=== PATIENT | male | born 1945 | race Caucasian/White ===

== ENCOUNTER → 2017-03-02 | Outpatient (CLI) | payer MEDICARE, OTHER ==
[2014-12-22 10:05] VITALS: BP 118/62
[~2017-03-02] MED LIST: AMITRIPTYLINE25 MG PO; AMLODIPINE10 MG PO; ASPIRIN 32325 MG/TA1 PO; ATORVASTATIN CA80 MG PO; COMBIGAN 0.2%-0.5 ML OP; DEEP SEA 45 ML45 ML NS; DOCUSATE CALCI100 MG PO; FAMOTIDINE20 MG PO; GLUCOSAMINE & C1 TA1 PO; KETOROLAC TROME10 MG PO; METOPROLOL SUCC50 M1 PO; MINOXIDIL 10 PO; MUCINEX 60600 MG/TA1 PO; NITROQUICK0.4 MG SL; NORVASC 10MG10 MG PO; OPTIVAR 6 ML 6 M6 ML NAS; PERCOCET 325 MG1 TA2 PO; PLAVIX 75MG TAB75 MG PO; PRILOSEC 20MG20 MG PO; PROTONIX40 MG PO; RITALIN 20M20 MG/TAB PO; RITALIN LA20 MG PO; SPIRONOLACTONE25 MG PO; TIMOPTIC OCUDOSE OP; TOPROL XL50 MG PO; TRAVATAN 2.5 M2.5 M1 OU; ZOCOR20 MG PO
== END ==
LOC: RAD 10:44
DX: E23.0 Hypopituitarism (principal); I25.10 Atherosclerotic heart disease of native coronary artery without angina pectoris; Z12.11 Encounter for screening for malignant neoplasm of colon

== ENCOUNTER → 2017-04-27 | Outpatient (CLI) | payer MEDICARE, OTHER ==
[2014-12-22 10:05] VITALS: BP 118/62
== END ==
LOC: LAB 11:13
DX: J98.4 Other disorders of lung (principal)

== ENCOUNTER → 2017-05-04 | Outpatient (CLI) | payer MEDICARE, OTHER ==
[2014-12-22 10:05] VITALS: BP 118/62
== END ==
LOC: RAD 08:20
DX: J98.4 Other disorders of lung (principal)

== ENCOUNTER → 2018-03-08 | Outpatient (CLI) | payer MEDICARE, OTHER ==
[2018-03-04 09:49] VITALS: BP 136/78
[~2018-03-08] MED LIST changes: +TOPROL XL 50MG50 MG PO; -TOPROL XL50 MG PO
== END ==
LOC: LAB 11:36
DX: Z12.11 Encounter for screening for malignant neoplasm of colon (principal)

== ENCOUNTER → 2018-03-12 | Outpatient (CLI) | payer MEDICARE, OTHER ==
[2018-03-04 09:49] VITALS: BP 136/78
== END ==
LOC: LAB 08:26
DX: Z01.89 Encounter for other specified special examinations (principal)

== ENCOUNTER → 2018-03-18 | Outpatient (CLI) | payer MEDICARE, OTHER ==
[2018-03-04 09:49] VITALS: BP 136/78
[2018-03-18 11:41] LABS: BASO # 0.1 (0.02-0.10); EOS # 0.4 (0.04-0.40); EOS % 2.3 % (0.0-4.0); HEMATOCRIT 47.6 % (42.0-52.0); HEMOGLOBIN 16.5 g/dL (13.5-18.0); MEAN CELL VOLUME 91 fl (78-100); MEAN CORPUSCULAR HEMOGLOBIN 32 pg (27-31); MEAN CORPUSCULAR HGB CONC 35 g/dL (33-37); MEAN PLATELET VOLUME 10.3 fl (7.4-10.4); NEU # 8.1 (1.40-6.50); PLATELET COUNT 221 K/mm3 (130-400); RED BLOOD COUNT 5.23 M/mm3 (4.20-5.60); RED CELL DISTRIBUTION WIDTH 12.2 % (11.5-14.5)
[2018-03-18 11:52] LABS: ALBUMIN 4.1 g/dL (3.5-5.0); BUN/CREATININE RATIO 13.3 (6.0-26.0); CALCIUM 8.9 mg/dL (8.4-10.2); POTASSIUM 4.6 mmol/L (3.6-5.0); TOTAL BILIRUBIN 0.7 mg/dL (0.2-1.3); TOTAL PROTEIN 7.1 g/dL (6.3-8.2)
[2018-03-18 12:31] LABS: URINE APPEARANCE CLEAR; URINE BILIRUBIN NEGATIVE (NEGATIVE); URINE BLOOD NEGATIVE (NEGATIVE); URINE COLOR YELLOW; URINE GLUCOSE NEGATIVE (NEGATIVE); URINE KETONE NEGATIVE (NEGATIVE); URINE LEUKOCYTE ESTERASE NEGATIVE (NEGATIVE); URINE NITRATE NEGATIVE (NEGATIVE); URINE PROTEIN(semi-quant) NEGATIVE (NEGATIVE); URINE UROBILINOGEN NORMAL (NORMAL); URINE WBC 0-1 /hpf (0-3)
[2018-03-18 12:38] LABS: LYMPH# 5.4 (1.50-4.00)
== END ==
LOC: LAB 11:09
PROVIDERS: Internal Medicine
DX: I25.10 Atherosclerotic heart disease of native coronary artery without angina pectoris (principal); I10 Essential (primary) hypertension; J98.4 Other disorders of lung

== ENCOUNTER 2018-05-13 20:44 | Emergency (ER) | payer MEDICARE, OTHER ==
[~2018-05-13] VITALS: Ht 177.8 cm; Wt 90.9 kg
[2018-05-13] MEDS ORDERED: PERCOCET 325 MG1 TA2 PO (22:50)
[2018-05-13 23:20] VITALS: BP 125/69
== END 2018-05-13 23:20 | disposition home or self-care (01) ==
LOC: ED 20:44
DX: S93.401A Sprain of unspecified ligament of right ankle, initial encounter (principal); S90.01XA Contusion of right ankle, initial encounter; W23.0XXA Caught, crushed, jammed, or pinched between moving objects, initial encounter; Y92.009 Unspecified place in unspecified non-institutional (private) residence as the place of occurrence of the external cause; I10 Essential (primary) hypertension; I25.2 Old myocardial infarction; Z95.1 Presence of aortocoronary bypass graft
CPT/HCPCS: J2270; J3010

== ENCOUNTER → 2018-05-22 | Outpatient (CLI) | payer MEDICARE, OTHER ==
[2018-05-13 23:20] VITALS: BP 125/69
== END ==
LOC: RAD 08:20
DX: R22.41 Localized swelling, mass and lump, right lower limb (principal)

== ENCOUNTER → 2019-04-01 | Outpatient (CLI) | payer MEDICARE, OTHER ==
[2019-04-01 10:32] LABS: BASO # 0.1 (0.02-0.10); EOS # 0.5 (0.04-0.40); HEMOGLOBIN 15.4 g/dL (13.5-18.0); LYMPH# 3.5 (1.50-4.00); MEAN CELL VOLUME 92 fl (78-100); MEAN CORPUSCULAR HEMOGLOBIN 31 pg (27-31); MEAN CORPUSCULAR HGB CONC 34 g/dL (33-37); MEAN PLATELET VOLUME 9.5 fl (7.4-10.4); MONO # 0.7 (0.20-0.80); NEU # 4.3 (1.40-6.50); PLATELET COUNT 199 K/mm3 (130-400); RED BLOOD COUNT 4.99 M/mm3 (4.20-5.60); RED CELL DISTRIBUTION WIDTH 12.1 % (11.5-14.5); WHITE BLOOD COUNT 9.1 K/mm3 (4.8-10.8)
[2019-04-01 10:39] LABS: EOS % 5.2 % (0.0-4.0)
[2019-04-01 11:20] LABS: ALBUMIN 4.2 g/dL (3.4-4.8); POTASSIUM 4.5 mmol/L (3.5-5.1); TOTAL BILIRUBIN 0.6 mg/dL (0.2-1.2); TOTAL PROTEIN 6.3 g/dL (6.2-8.1)
[2019-04-01 12:00] LABS: ERYTHROCYTE SEDIMENTATION RATE 1 mm/hr (0-20)
[2019-04-01 22:21] LABS: TESTOSTERONE 616 ng/dL (221-716)
== END ==
LOC: LAB 10:20
PROVIDERS: Internal Medicine
DX: Z12.5 Encounter for screening for malignant neoplasm of prostate (principal); Z12.11 Encounter for screening for malignant neoplasm of colon; I25.10 Atherosclerotic heart disease of native coronary artery without angina pectoris; I10 Essential (primary) hypertension; E23.0 Hypopituitarism; R20.2 Paresthesia of skin

== ENCOUNTER → 2019-04-11 | Outpatient (CLI) | payer MEDICARE, OTHER | LOC: LAB 13:52 | DX: Z12.11 Encounter for screening for malignant neoplasm of colon (principal); I25.10 Atherosclerotic heart disease of native coronary artery without angina pectoris ==

== ENCOUNTER → 2019-05-02 | Outpatient (CLI) | payer MEDICARE, OTHER ==
[2019-05-02 16:19] LABS: POTASSIUM 4.1 mmol/L (3.5-5.1); SODIUM 134 mmol/L (136-145)
[2019-05-02 16:20] LABS: CALCIUM 9.2 mg/dL (8.3-10.5); HEMATOCRIT 45.8 % (42.0-52.0); HEMOGLOBIN 15.5 g/dL (13.5-18.0); MEAN PLATELET VOLUME 9.6 fl (7.4-10.4); RED BLOOD COUNT 4.99 M/mm3 (4.20-5.60); RED CELL DISTRIBUTION WIDTH 11.9 % (11.5-14.5); WHITE BLOOD COUNT 9.2 K/mm3 (4.8-10.8)
[2019-05-02 16:21] LABS: GLUCOSE 88 mg/dL (75-110)
[2019-05-02 16:22] LABS: CARBON DIOXIDE 25 mmol/L (23-31)
[2019-05-02 16:45] LABS: TROPONIN-I < 0.03 ng/mL (<0.030)
== END ==
LOC: LAB 15:53
PROVIDERS: Psychiatry & Neurology Psychiatry
DX: I10 Essential (primary) hypertension (principal); I95.9 Hypotension, unspecified

== ENCOUNTER → 2019-08-13 | Outpatient (CLI) | payer MEDICARE, OTHER | LOC: LAB 10:14 | DX: E29.1 Testicular hypofunction (principal) ==

== ENCOUNTER → 2019-12-04 | Outpatient (CLI) | payer MEDICARE, OTHER | LOC: RAD 09:25 | DX: M50.30 Other cervical disc degeneration, unspecified cervical region (principal); M47.814 Spondylosis without myelopathy or radiculopathy, thoracic region; M41.84 Other forms of scoliosis, thoracic region ==

== ENCOUNTER → 2019-12-19 | Outpatient (CLI) | payer MEDICARE, OTHER | LOC: RAD 08:52 | DX: D17.79 Benign lipomatous neoplasm of other sites (principal) ==

== ENCOUNTER 2020-01-22 14:00 | Outpatient (RCR) | payer MEDICARE, OTHER | END 2020-03-08 | disposition still patient (30) | LOC: PT | DX: M54.2 Cervicalgia (principal); M54.6 Pain in thoracic spine ==

== ENCOUNTER → 2020-05-03 | Outpatient (CLI) | payer MEDICARE, OTHER ==
[2020-05-03 08:35] LABS: URINE WBC 0 /hpf (0-3)
[2020-05-03 08:43] LABS: BASO # 0.1 (0.02-0.10); EOS # 0.5 (0.04-0.40); EOS % 4.5 % (0.0-4.0); HEMATOCRIT 46.8 % (42.0-52.0); HEMOGLOBIN 15.8 g/dL (13.5-18.0); LYMPH# 4.4 (1.50-4.00); MEAN CELL VOLUME 94 fl (78-100); MEAN CORPUSCULAR HEMOGLOBIN 32 pg (27-31); MEAN CORPUSCULAR HGB CONC 34 g/dL (33-37); MEAN PLATELET VOLUME 9.6 fl (7.4-10.4); MONO # 0.9 (0.20-0.80); NEU # 4.1 (1.40-6.50); PLATELET COUNT 170 K/mm3 (130-400); RED BLOOD COUNT 4.99 M/mm3 (4.20-5.60); RED CELL DISTRIBUTION WIDTH 11.8 % (11.5-14.5)
[2020-05-03 08:50] LABS: POTASSIUM 4.2 mmol/L (3.5-5.1)
[2020-05-03 08:51] LABS: CALCIUM 8.9 mg/dL (8.3-10.5)
[2020-05-03 08:52] LABS: TOTAL PROTEIN 6.3 g/dL (6.2-8.1)
[2020-05-03 08:54] LABS: TOTAL BILIRUBIN 0.5 mg/dL (0.2-1.2)
[2020-05-03 08:59] LABS: MAGNESIUM 1.92 mg/dL (1.60-2.60)
--- NOTE | 2020-05-03 09:11 | NUR ---
PATIENT DENIES SHORTNESS OF BREATH OR CHEST PAIN. PATIENT'S EKG IS ABNORMAL; GAVE COPY TO DR. SHEARER TO REVIEW AND PATIENT LEFT DEPARTMENT WITHOUT INCIDENT.
[2020-05-03 09:15] LABS: URINE APPEARANCE CLEAR; URINE BILIRUBIN NEGATIVE (NEGATIVE); URINE BLOOD NEGATIVE (NEGATIVE); URINE COLOR YELLOW; URINE GLUCOSE NEGATIVE (NEGATIVE); URINE KETONE NEGATIVE (NEGATIVE); URINE LEUKOCYTE ESTERASE NEGATIVE (NEGATIVE); URINE NITRATE NEGATIVE (NEGATIVE); URINE PROTEIN(semi-quant) TRACE mg/dL (NEGATIVE); URINE UROBILINOGEN NORMAL (NORMAL)
[2020-05-03 09:49] LABS: ERYTHROCYTE SEDIMENTATION RATE 0 mm/hr (0-20)
[2020-05-03 17:06] LABS: TESTOSTERONE 461 ng/dL (221-716)
== END ==
LOC: AMSURD 08:25
PROVIDERS: Internal Medicine
DX: I25.10 Atherosclerotic heart disease of native coronary artery without angina pectoris (principal)

== ENCOUNTER → 2020-07-09 | Outpatient (CLI) | payer MEDICARE, OTHER | LOC: AMSURD 09:47 | DX: I48.0 Paroxysmal atrial fibrillation (principal) ==

== ENCOUNTER → 2020-07-12 | Outpatient (CLI) | payer MEDICARE, OTHER | LOC: RAD 11:59 | DX: M19.011 Primary osteoarthritis, right shoulder (principal) ==

== ENCOUNTER → 2020-07-15 | Outpatient (CLI) | payer MEDICARE, OTHER | LOC: RAD 10:59 | DX: M19.011 Primary osteoarthritis, right shoulder (principal); S43.431A Superior glenoid labrum lesion of right shoulder, initial encounter; M75.81 Other shoulder lesions, right shoulder; M75.51 Bursitis of right shoulder ==

== ENCOUNTER 2020-08-10 10:03 | Outpatient (RCR) | payer MEDICARE, OTHER | END 2020-08-10 10:30 | disposition still patient (30) | LOC: PT 10:03 | DX: M25.511 Pain in right shoulder (principal) ==

== ENCOUNTER 2020-09-03 10:30 | Outpatient (RCR) | payer MEDICARE, OTHER | END 2020-09-03 11:00 | disposition still patient (30) | LOC: PT 10:30 | DX: M25.511 Pain in right shoulder (principal) ==

== ENCOUNTER → 2020-11-01 | Outpatient (CLI) | payer MEDICARE, OTHER ==
[2020-11-01 10:13] LABS: BASO # 0.1 (0.02-0.10); EOS # 0.4 (0.04-0.40); EOS % 4.4 % (0.0-4.0); HEMATOCRIT 45.4 % (42.0-52.0); HEMOGLOBIN 15.5 g/dL (13.5-18.0); LYMPH# 3.7 (1.50-4.00); MEAN CELL VOLUME 92 fl (78-100); MEAN CORPUSCULAR HEMOGLOBIN 32 pg (27-31); MEAN CORPUSCULAR HGB CONC 34 g/dL (33-37); MEAN PLATELET VOLUME 9.4 fl (7.4-10.4); MONO # 0.8 (0.20-0.80); NEU # 3.9 (1.40-6.50); PLATELET COUNT 212 K/mm3 (130-400); RED BLOOD COUNT 4.92 M/mm3 (4.20-5.60); RED CELL DISTRIBUTION WIDTH 11.7 % (11.5-14.5); WHITE BLOOD COUNT 8.9 K/mm3 (4.8-10.8)
[2020-11-01 10:27] LABS: TOTAL PROTEIN 6.3 g/dL (6.2-8.1)
[2020-11-01 10:29] LABS: TOTAL BILIRUBIN 0.6 mg/dL (0.2-1.2)
[2020-11-01 22:46] LABS: TESTOSTERONE 558 ng/dL (221-716)
== END ==
LOC: LAB 09:57
PROVIDERS: Internal Medicine
DX: I10 Essential (primary) hypertension (principal); K90.9 Intestinal malabsorption, unspecified; E23.0 Hypopituitarism; E78.2 Mixed hyperlipidemia

== ENCOUNTER → 2021-03-14 | Outpatient (CLI) | payer MEDICARE, OTHER ==
[~2021-03-14] MED LIST changes: +DESYREL50 MG PO; +MELATONIN5 M3 PO; +MYRBETRIQ50 MG PO; +PROVIGIL200 M1 PO; +TRAVATAN Z 5 ML5 ML OU; +TRUSOPT OCUMETE10 ML OU
[2021-03-14 10:32] LABS: URINE APPEARANCE CLEAR; URINE BILIRUBIN NEGATIVE (NEGATIVE); URINE BLOOD NEGATIVE (NEGATIVE); URINE COLOR YELLOW; URINE GLUCOSE NEGATIVE (NEGATIVE); URINE KETONE NEGATIVE (NEGATIVE); URINE NITRATE NEGATIVE (NEGATIVE); URINE PROTEIN(semi-quant) NEGATIVE (NEGATIVE); URINE UROBILINOGEN NORMAL (NORMAL)
[2021-03-14 10:33] LABS: URINE LEUKOCYTE ESTERASE NEGATIVE (NEGATIVE)
== END ==
LOC: LAB 09:53
PROVIDERS: Internal Medicine
DX: R31.0 Gross hematuria (principal)

== ENCOUNTER → 2021-03-22 | Outpatient (CLI) | payer MEDICARE, OTHER ==
[2021-03-22 14:36] LABS: URINE WBC 0 /hpf (0-3)
[2021-03-22 15:19] LABS: URINE APPEARANCE CLEAR; URINE BILIRUBIN NEGATIVE (NEGATIVE); URINE BLOOD TRACE (NEGATIVE); URINE COLOR YELLOW; URINE GLUCOSE NEGATIVE (NEGATIVE); URINE KETONE NEGATIVE (NEGATIVE); URINE LEUKOCYTE ESTERASE NEGATIVE (NEGATIVE); URINE NITRATE NEGATIVE (NEGATIVE); URINE PROTEIN(semi-quant) TRACE mg/dL (NEGATIVE); URINE UROBILINOGEN NORMAL (NORMAL)
== END ==
LOC: LAB 14:23
PROVIDERS: Internal Medicine
DX: R31.0 Gross hematuria (principal)

== ENCOUNTER → 2021-03-23 | Outpatient (CLI) | payer MEDICARE, OTHER | LOC: RAD 07:30 | DX: R31.0 Gross hematuria (principal) ==

== ENCOUNTER 2021-04-26 09:56 | Outpatient (RCR) | payer MEDICARE, OTHER ==
[~2021-04-26 09:56] MED LIST changes: -DESYREL50 MG PO; -MELATONIN5 M3 PO; -MYRBETRIQ50 MG PO; -PROVIGIL200 M1 PO; -TRAVATAN Z 5 ML5 ML OU; -TRUSOPT OCUMETE10 ML OU
== END 2021-07-25 | disposition still patient (30) ==
LOC: PT
DX: R29.898 Other symptoms and signs involving the musculoskeletal system (principal)

== ENCOUNTER → 2021-05-12 | Outpatient (CLI) | payer MEDICARE, OTHER ==
[~2021-05-12] MED LIST changes: +DESYREL50 MG PO; +MELATONIN5 M3 PO; +MYRBETRIQ50 MG PO; +PROVIGIL200 M1 PO; +TRAVATAN Z 5 ML5 ML OU; +TRUSOPT OCUMETE10 ML OU
[2021-05-12 12:24] LABS: BASO # 0.08 (0.02-0.10); EOS # 0.53 (0.04-0.40); EOS % 5.7 % (0.0-4.0); HEMATOCRIT 46.9 % (42.0-52.0); HEMOGLOBIN 16.2 g/dL (13.5-18.0); LYMPH# 4.23 (1.50-4.00); MEAN CELL VOLUME 91 fl (78-100); MEAN CORPUSCULAR HEMOGLOBIN 32 pg (27-31); MEAN CORPUSCULAR HGB CONC 35 g/dL (33-37); MEAN PLATELET VOLUME 9.2 fl (7.4-10.4); MONO # 0.67 (0.20-0.80); NEU # 3.75 (1.40-6.50); PLATELET COUNT 201 K/mm3 (130-400); RED BLOOD COUNT 5.13 M/mm3 (4.20-5.60); RED CELL DISTRIBUTION WIDTH 11.2 % (11.5-14.5); WHITE BLOOD COUNT 9.3 K/mm3 (4.8-10.8)
[2021-05-12 12:28] LABS: ALBUMIN 4.2 g/dL (3.4-4.8); POTASSIUM 4.3 mmol/L (3.5-5.1)
[2021-05-12 12:29] LABS: CALCIUM 9.1 mg/dL (8.3-10.5)
[2021-05-12 12:31] LABS: TOTAL PROTEIN 6.7 g/dL (6.2-8.1)
[2021-05-12 12:32] LABS: TOTAL BILIRUBIN 0.7 mg/dL (0.2-1.2)
[2021-05-12 12:38] LABS: MAGNESIUM 1.86 mg/dL (1.60-2.60)
[2021-05-12 13:46] LABS: ERYTHROCYTE SEDIMENTATION RATE 0 mm/hr (0-20)
[2021-05-12 22:17] LABS: TESTOSTERONE 652 ng/dL (221-716)
== END ==
LOC: LAB 05-10 15:14
PROVIDERS: Internal Medicine
DX: Z12.11 Encounter for screening for malignant neoplasm of colon (principal); Z12.5 Encounter for screening for malignant neoplasm of prostate; C91.90 Lymphoid leukemia, unspecified not having achieved remission; K90.9 Intestinal malabsorption, unspecified; I25.10 Atherosclerotic heart disease of native coronary artery without angina pectoris; E23.0 Hypopituitarism

== ENCOUNTER → 2021-05-19 | Outpatient (CLI) | payer MEDICARE, OTHER | LOC: LAB 11:05 | DX: Z12.11 Encounter for screening for malignant neoplasm of colon (principal) ==

== ENCOUNTER → 2021-06-06 | Day surgery (SDC) | payer MEDICARE, OTHER | END | disposition home or self-care (01) | LOC: MSO 07:42 | DX: Z12.11 Encounter for screening for malignant neoplasm of colon (principal); Z86.010 Personal history of colon polyps; G47.33 Obstructive sleep apnea (adult) (pediatric); I10 Essential (primary) hypertension; I25.10 Atherosclerotic heart disease of native coronary artery without angina pectoris; E78.2 Mixed hyperlipidemia; H40.9 Unspecified glaucoma; Z79.82 Long term (current) use of aspirin; Z95.1 Presence of aortocoronary bypass graft; Z79.899 Other long term (current) drug therapy | CPT/HCPCS: 00812; J2704; J7120 ==

== ENCOUNTER 2021-08-19 22:29 | Emergency (ER) | payer MEDICARE, OTHER ==
[~2021-08-19] VITALS: Ht 175.3 cm; Wt 79.5 kg
[~2021-08-19 22:29] MED LIST changes: -DESYREL50 MG PO; -MELATONIN5 M3 PO; -MYRBETRIQ50 MG PO; -PROVIGIL200 M1 PO; -TRAVATAN Z 5 ML5 ML OU; -TRUSOPT OCUMETE10 ML OU
[2021-08-19] MEDS ORDERED: PROVIGIL200 M1 PO (22:44)
[2021-08-19] MEDS ORDERED: MYRBETRIQ50 MG PO (22:44)
[2021-08-19] MEDS ORDERED: MELATONIN5 M3 PO (22:45)
[2021-08-19] MEDS ORDERED: DESYREL50 MG PO (22:45)
[2021-08-19] MEDS ORDERED: TRAVATAN Z 5 ML5 ML OU (22:46)
[2021-08-19] MEDS ORDERED: TRUSOPT OCUMETE10 ML OU (22:47)
[2021-08-19 23:26] LABS: BASO # 0.13 K/mm3 (0.02-0.10); EOS # 0.58 K/mm3 (0.04-0.40); EOS % 6.1 % (0.0-4.0); HEMOGLOBIN 15.5 g/dL (13.5-18.0); LYMPH# 4.09 K/mm3 (1.50-4.00); MEAN CELL VOLUME 91 fl (78-100); MEAN CORPUSCULAR HEMOGLOBIN 32 pg (27-31); MEAN CORPUSCULAR HGB CONC 35 g/dL (33-37); MEAN PLATELET VOLUME 9.3 fl (7.4-10.4); MONO # 0.84 K/mm3 (0.20-0.80); NEU # 3.76 K/mm3 (1.40-6.50); PLATELET COUNT 195 K/mm3 (130-400); RED BLOOD COUNT 4.86 M/mm3 (4.20-5.60); RED CELL DISTRIBUTION WIDTH 11.5 % (11.5-14.5); WHITE BLOOD COUNT 9.4 K/mm3 (4.8-10.8)
[2021-08-19 23:33] LABS: ALBUMIN 3.9 g/dL (3.4-4.8); POTASSIUM 4.1 mmol/L (3.5-5.1); SODIUM 132 mmol/L (136-145)
[2021-08-19 23:34] LABS: CALCIUM 9.2 mg/dL (8.3-10.5)
[2021-08-19 23:35] LABS: GLUCOSE 109 mg/dL (75-110)
[2021-08-19 23:36] LABS: TOTAL PROTEIN 6.2 g/dL (6.2-8.1)
[2021-08-19 23:37] LABS: CARBON DIOXIDE 20 mmol/L (23-31); TOTAL BILIRUBIN 0.4 mg/dL (0.2-1.2)
[2021-08-19 23:41] LABS: AST-SGOT 22 U/L (5-34)
[2021-08-19 23:42] LABS: ALT/SGPT 33 U/L (0-55)
[2021-08-20] LABS: PARTIAL THROMBOPLASTIN TIME 26.9 SECONDS (21.0-32.0); PROTHROMBIN TIME 10.9 SECONDS (9.0-12.0)
[2021-08-20 00:04] LABS: TROPONIN-I < 0.03 ng/mL (<0.030)
[2021-08-20 00:38] VITALS: BP 146/73
== END 2021-08-20 00:38 | disposition home or self-care (01) ==
LOC: ED 22:29
PROVIDERS: Physician Assistant
DX: F41.9 Anxiety disorder, unspecified (principal); R94.31 Abnormal electrocardiogram [ECG] [EKG]; E78.5 Hyperlipidemia, unspecified; I25.10 Atherosclerotic heart disease of native coronary artery without angina pectoris; Z79.82 Long term (current) use of aspirin; Z79.899 Other long term (current) drug therapy

== ENCOUNTER → 2021-09-27 | Outpatient (CLI) | payer MEDICARE, OTHER ==
[~2021-09-27] MED LIST changes: +DESYREL50 MG PO; +MELATONIN5 M3 PO; +MYRBETRIQ50 MG PO; +PROVIGIL200 M1 PO; +TRAVATAN Z 5 ML5 ML OU; +TRUSOPT OCUMETE10 ML OU
== END ==
LOC: LAB 15:40
DX: Z20.822 Contact with and (suspected) exposure to COVID-19 (principal)

== ENCOUNTER → 2021-11-10 | Outpatient (CLI) | payer MEDICARE, OTHER ==
[2021-11-10 12:11] LABS: BASO # 0.12 K/mm3 (0.02-0.10); EOS # 0.39 K/mm3 (0.04-0.40); EOS % 4.5 % (0.0-4.0); HEMATOCRIT 46.8 % (42.0-52.0); LYMPH# 4.46 K/mm3 (1.50-4.00); MEAN CELL VOLUME 92 fl (78-100); MEAN CORPUSCULAR HEMOGLOBIN 31 pg (27-31); MEAN CORPUSCULAR HGB CONC 34 g/dL (33-37); MEAN PLATELET VOLUME 8.7 fl (7.4-10.4); MONO # 0.62 K/mm3 (0.20-0.80); NEU # 3.03 K/mm3 (1.40-6.50); PLATELET COUNT 210 K/mm3 (130-400); RED CELL DISTRIBUTION WIDTH 11.2 % (11.5-14.5); WHITE BLOOD COUNT 8.7 K/mm3 (4.8-10.8)
[2021-11-10 12:24] LABS: ALBUMIN 4.4 g/dL (3.4-4.8); POTASSIUM 4.5 mmol/L (3.5-5.1)
[2021-11-10 12:26] LABS: CALCIUM 9.6 mg/dL (8.3-10.5)
[2021-11-10 12:29] LABS: TOTAL BILIRUBIN 0.8 mg/dL (0.2-1.2)
== END ==
LOC: LAB 11:50
PROVIDERS: Internal Medicine
DX: I10 Essential (primary) hypertension (principal); K90.9 Intestinal malabsorption, unspecified; E78.2 Mixed hyperlipidemia

== ENCOUNTER → 2022-05-18 | Outpatient (CLI) | payer MEDICARE, OTHER ==
[2022-05-18 10:18] LABS: BASO # 0.07 K/mm3 (0.02-0.10); EOS # 0.44 K/mm3 (0.04-0.40); EOS % 6.6 % (0.0-4.0); HEMATOCRIT 44.5 % (42.0-52.0); HEMOGLOBIN 15.4 g/dL (13.5-18.0); LYMPH# 3.92 K/mm3 (1.50-4.00); MEAN CELL VOLUME 92 fl (78-100); MEAN CORPUSCULAR HEMOGLOBIN 32 pg (27-31); MEAN CORPUSCULAR HGB CONC 35 g/dL (33-37); MEAN PLATELET VOLUME 9.3 fl (7.4-10.4); MONO # 0.38 K/mm3 (0.20-0.80); NEU # 1.87 K/mm3 (1.40-6.50); PLATELET COUNT 165 K/mm3 (130-400); RED BLOOD COUNT 4.82 M/mm3 (4.20-5.60); RED CELL DISTRIBUTION WIDTH 11.4 % (11.5-14.5); WHITE BLOOD COUNT 6.7 K/mm3 (4.8-10.8)
[2022-05-18 10:24] LABS: ALBUMIN 4.3 g/dL (3.4-4.8); POTASSIUM 4.2 mmol/L (3.5-5.1)
[2022-05-18 10:25] LABS: CALCIUM 9.2 mg/dL (8.3-10.5)
[2022-05-18 10:27] LABS: TOTAL PROTEIN 6.9 g/dL (6.2-8.1)
[2022-05-18 10:29] LABS: TOTAL BILIRUBIN 0.7 mg/dL (0.2-1.2)
[2022-05-18 10:33] LABS: MAGNESIUM 1.97 mg/dL (1.60-2.60)
[2022-05-18 12:38] LABS: ERYTHROCYTE SEDIMENTATION RATE 0 mm/hr (0-20)
== END ==
LOC: LAB 09:56
PROVIDERS: Internal Medicine
DX: Z12.5 Encounter for screening for malignant neoplasm of prostate (principal); C83.00 Small cell B-cell lymphoma, unspecified site; I10 Essential (primary) hypertension; K90.9 Intestinal malabsorption, unspecified; M54.12 Radiculopathy, cervical region; I25.10 Atherosclerotic heart disease of native coronary artery without angina pectoris; E78.2 Mixed hyperlipidemia

== ENCOUNTER → 2022-08-09 | Outpatient (CLI) | payer MEDICARE, OTHER | LOC: LAB 08:51 | DX: E78.5 Hyperlipidemia, unspecified (principal) ==

== ENCOUNTER → 2022-10-19 | Outpatient (CLI) | payer MEDICARE, OTHER ==
[2022-10-19 11:28] LABS: HEMATOCRIT 38.6 % (42.0-52.0); HEMOGLOBIN 13.7 g/dL (13.5-18.0); MEAN CELL VOLUME 94 fl (78-100); MEAN CORPUSCULAR HEMOGLOBIN 33 pg (27-31); MEAN CORPUSCULAR HGB CONC 36 g/dL (33-37); MEAN PLATELET VOLUME 8.8 fl (7.4-10.4); PLATELET COUNT 169 K/mm3 (130-400); RED BLOOD COUNT 4.13 M/mm3 (4.20-5.60); RED CELL DISTRIBUTION WIDTH 11.7 % (11.5-14.5); WHITE BLOOD COUNT 5.2 K/mm3 (4.8-10.8)
[2022-10-19 11:37] LABS: ALBUMIN 4.3 g/dL (3.4-4.8); POTASSIUM 4.4 mmol/L (3.5-5.1)
[2022-10-19 11:38] LABS: CALCIUM 9.6 mg/dL (8.3-10.5)
[2022-10-19 11:39] LABS: TOTAL PROTEIN 6.8 g/dL (6.2-8.1)
[2022-10-19 11:41] LABS: TOTAL BILIRUBIN 0.6 mg/dL (0.2-1.2)
[2022-10-19 11:46] LABS: MAGNESIUM 1.93 mg/dL (1.60-2.60)
[2022-10-19 11:56] LABS: LYMPHOCYTE 56 % (20-51); METAMYELOCYTE 4 % (0-0); MONOCYTE 4 % (3-10); NEUTROPHILS 35 % (42-75)
== END ==
LOC: LAB 11:00
PROVIDERS: Internal Medicine
DX: C83.00 Small cell B-cell lymphoma, unspecified site (principal); C91.90 Lymphoid leukemia, unspecified not having achieved remission; I10 Essential (primary) hypertension; E78.2 Mixed hyperlipidemia; K90.9 Intestinal malabsorption, unspecified; M54.12 Radiculopathy, cervical region; I25.10 Atherosclerotic heart disease of native coronary artery without angina pectoris; G47.33 Obstructive sleep apnea (adult) (pediatric); N39.46 Mixed incontinence

== ENCOUNTER 2023-02-13 15:41 | Emergency (ER) | payer MEDICARE, OTHER ==
[~2023-02-13] VITALS: Ht 175.3 cm; Wt 81.8 kg
[2023-02-13] MEDS ORDERED: LISINOPRIL10 MG PO (16:00)
[2023-02-13] MEDS ORDERED: ZOLPIDEM TART12.5 MG PO (16:01)
[2023-02-13] MEDS ORDERED: FLUTICASON0.05 MG/Ac NS (16:03)
[2023-02-13] MEDS ORDERED: FLOMAX0.4 MG PO (16:04)
[2023-02-13] MEDS ORDERED: ACETAMINOPHEN-H1 TA2 PO (16:05)
[2023-02-13 16:58] VITALS: BP 135/64
== END 2023-02-13 17:00 | disposition home or self-care (01) ==
LOC: ED 15:41
DX: N50.82 Scrotal pain (principal); R09.02 Hypoxemia

== ENCOUNTER → 2023-07-30 | Outpatient (CLI) | payer MEDICARE, OTHER ==
[~2023-07-30] MED LIST changes: +ACETAMINOPHEN-H1 TA2 PO; +FLOMAX0.4 MG PO; +FLUTICASON0.05 MG/Ac NS; +LISINOPRIL10 MG PO; +ZOLPIDEM TART12.5 MG PO
[2023-07-30 16:59] LABS: BASO # 0.03 K/mm3 (0.02-0.10); EOS # 0.07 K/mm3 (0.04-0.40); EOS % 1.6 % (0.0-4.0); HEMOGLOBIN 12.8 g/dL (13.5-18.0); LYMPH# 2.59 K/mm3 (1.50-4.00); MEAN CELL VOLUME 101 fl (78-100); MEAN CORPUSCULAR HEMOGLOBIN 34 pg (27-31); MEAN CORPUSCULAR HGB CONC 34 g/dL (33-37); MEAN PLATELET VOLUME 9.2 fl (7.4-10.4); MONO # 0.24 K/mm3 (0.20-0.80); NEU # 1.08 K/mm3 (1.40-6.50); PLATELET COUNT 105 K/mm3 (130-400); RED BLOOD COUNT 3.78 M/mm3 (4.20-5.60); RED CELL DISTRIBUTION WIDTH 12.2 % (11.5-14.5); WHITE BLOOD COUNT 4.3 K/mm3 (4.8-10.8)
[2023-07-30 17:06] LABS: ALBUMIN 4.1 g/dL (3.4-4.8)
[2023-07-30 17:07] LABS: CALCIUM 9.1 mg/dL (8.3-10.5)
[2023-07-30 17:08] LABS: TOTAL PROTEIN 6.3 g/dL (6.2-8.1)
[2023-07-30 17:10] LABS: TOTAL BILIRUBIN 0.6 mg/dL (0.2-1.2)
[2023-07-30 17:31] LABS: PROTHROMBIN TIME 11.2 SECONDS (9.0-12.0)
[2023-07-30 18:04] LABS: URINE APPEARANCE CLEAR; URINE BILIRUBIN NEGATIVE (NEGATIVE); URINE BLOOD NEGATIVE (NEGATIVE); URINE COLOR YELLOW; URINE GLUCOSE NEGATIVE (NEGATIVE); URINE KETONE NEGATIVE (NEGATIVE); URINE LEUKOCYTE ESTERASE NEGATIVE (NEGATIVE); URINE NITRATE NEGATIVE (NEGATIVE); URINE PROTEIN(semi-quant) NEGATIVE (NEGATIVE); URINE UROBILINOGEN NORMAL (NORMAL); URINE WBC 0-1 /hpf (0-3)
== END ==
LOC: LAB 16:24
PROVIDERS: Internal Medicine
DX: Z01.811 Encounter for preprocedural respiratory examination (principal); I21.9 Acute myocardial infarction, unspecified

== ENCOUNTER → 2023-12-20 | Outpatient (CLI) | payer MEDICARE, OTHER ==
[2023-12-20 14:48] LABS: BASO # 0.01 K/mm3 (0.02-0.10); EOS # 0.04 K/mm3 (0.04-0.40); EOS % 0.9 % (0.0-4.0); HEMATOCRIT 39.8 % (42.0-52.0); HEMOGLOBIN 13.4 g/dL (13.5-18.0); LYMPH# 2.83 K/mm3 (1.50-4.00); MEAN CELL VOLUME 100 fl (78-100); MEAN CORPUSCULAR HEMOGLOBIN 34 pg (27-31); MEAN CORPUSCULAR HGB CONC 34 g/dL (33-37); MEAN PLATELET VOLUME 8.5 fl (7.4-10.4); MONO # 0.31 K/mm3 (0.20-0.80); NEU # 1.35 K/mm3 (1.40-6.50); PLATELET COUNT 81 K/mm3 (130-400); RED CELL DISTRIBUTION WIDTH 13.3 % (11.5-14.5); WHITE BLOOD COUNT 4.6 K/mm3 (4.8-10.8)
[2023-12-20 14:54] LABS: ALBUMIN 4.6 g/dL (3.4-4.8)
[2023-12-20 14:55] LABS: CALCIUM 9.4 mg/dL (8.3-10.5)
[2023-12-20 14:57] LABS: TOTAL PROTEIN 6.9 g/dL (6.2-8.1)
[2023-12-20 14:59] LABS: TOTAL BILIRUBIN 0.8 mg/dL (0.2-1.2)
[2023-12-20 15:04] LABS: MAGNESIUM 1.91 mg/dL (1.60-2.60)
== END ==
LOC: LAB 14:37
PROVIDERS: Internal Medicine
DX: I10 Essential (primary) hypertension (principal); E78.2 Mixed hyperlipidemia; R97.8 Other abnormal tumor markers

== ENCOUNTER → 2024-05-05 | Outpatient (CLI) | payer MEDICARE, OTHER ==
[2024-05-05 15:40] LABS: PH-URINE 6.5 (5.0 - 8.0); URINE APPEARANCE CLEAR (CLEAR); URINE BILIRUBIN NEGATIVE (NEGATIVE); URINE BLOOD NEGATIVE (NEGATIVE); URINE COLOR YELLOW (YELLOW); URINE GLUCOSE NEGATIVE (NEGATIVE); URINE KETONE NEGATIVE (NEGATIVE); URINE LEUKOCYTE ESTERASE NEGATIVE (NEGATIVE); URINE NITRATE NEGATIVE (NEGATIVE); URINE PROTEIN(semi-quant) NEGATIVE (NEGATIVE)
[2024-05-05 15:43] LABS: URINE MUCUS PRESENT (NOT PRESENT)
== END ==
LOC: LAB 15:19
PROVIDERS: Nurse Practitioner Family
DX: R30.9 Painful micturition, unspecified (principal)

== ENCOUNTER → 2024-06-27 | Outpatient (CLI) | payer MEDICARE, OTHER ==
[2024-06-27 11:19] LABS: BASO # 0.03 K/mm3 (0.02-0.10); EOS # 0.08 K/mm3 (0.04-0.40); EOS % 1.5 % (0.0-4.0); HEMATOCRIT 37.6 % (42.0-52.0); HEMOGLOBIN 12.5 g/dL (13.5-18.0); LYMPH# 3.05 K/mm3 (1.50-4.00); MEAN CELL VOLUME 100 fl (78-100); MEAN CORPUSCULAR HEMOGLOBIN 33 pg (27-31); MEAN CORPUSCULAR HGB CONC 33 g/dL (33-37); MEAN PLATELET VOLUME 9.1 fl (7.4-10.4); MONO # 0.29 K/mm3 (0.20-0.80); NEU # 1.56 K/mm3 (1.40-6.50); RED BLOOD COUNT 3.76 M/mm3 (4.20-5.60); RED CELL DISTRIBUTION WIDTH 13.4 % (11.5-14.5); WHITE BLOOD COUNT 5.2 K/mm3 (4.8-10.8)
[2024-06-27 11:41] LABS: ALBUMIN 4.6 g/dL (3.4-4.8)
[2024-06-27 11:42] LABS: CALCIUM 9.3 mg/dL (8.3-10.5)
[2024-06-27 11:45] LABS: TOTAL BILIRUBIN 0.8 mg/dL (0.2-1.2)
[2024-06-27 11:48] LABS: PLATELET COUNT 80 K/mm3 (130-400)
[2024-06-27 11:50] LABS: MAGNESIUM 1.94 mg/dL (1.60-2.60)
== END ==
LOC: LAB 11:02
PROVIDERS: Internal Medicine
DX: I10 Essential (primary) hypertension (principal)

== ENCOUNTER → 2024-12-29 | Outpatient (CLI) | payer MEDICARE, OTHER ==
[2024-12-29 12:58] LABS: BASO # 0.01 K/mm3 (0.02-0.10); EOS # 0.03 K/mm3 (0.04-0.40); EOS % 0.5 % (0.0-4.0); HEMATOCRIT 42.4 % (42.0-52.0); HEMOGLOBIN 13.9 g/dL (13.5-18.0); LYMPH# 3.57 K/mm3 (1.50-4.00); MEAN CELL VOLUME 99 fl (78-100); MEAN CORPUSCULAR HEMOGLOBIN 32 pg (27-31); MEAN CORPUSCULAR HGB CONC 33 g/dL (33-37); MEAN PLATELET VOLUME 9.7 fl (7.4-10.4); NEU # 2.14 K/mm3 (1.40-6.50); PLATELET COUNT 76 K/mm3 (130-400); RED CELL DISTRIBUTION WIDTH 13.1 % (11.5-14.5); WHITE BLOOD COUNT 6.3 K/mm3 (4.8-10.8)
[2024-12-29 13:18] LABS: ALBUMIN 4.7 g/dL (3.4-4.8)
[2024-12-29 13:19] LABS: CALCIUM 9.9 mg/dL (8.3-10.5)
[2024-12-29 13:20] LABS: TOTAL PROTEIN 7.8 g/dL (6.2-8.1)
[2024-12-29 13:22] LABS: TOTAL BILIRUBIN 0.8 mg/dL (0.2-1.2)
[2024-12-29 13:27] LABS: MAGNESIUM 1.95 mg/dL (1.60-2.60)
== END ==
LOC: LAB 12:34
PROVIDERS: Internal Medicine
DX: I10 Essential (primary) hypertension (principal); E78.2 Mixed hyperlipidemia; R73.9 Hyperglycemia, unspecified

== ENCOUNTER → 2025-01-02 | Outpatient (CLI) | payer MEDICARE, OTHER | LOC: RAD 09:00 | DX: M47.26 Other spondylosis with radiculopathy, lumbar region (principal); Z96.641 Presence of right artificial hip joint ==